=== PATIENT | female | born 1955 | race Caucasian/White ===

== ENCOUNTER → 2017-05-12 | Outpatient (CLI) | payer OTHER ==
[2017-05-12 20:08] LABS: BASO % 0.8 % (0.0-1.0); EOS % 0.6 % (0.0-3.0); LARGE UNSTAINED CELL # 0.2 K/mm3 (0.0-0.4); LARGE UNSTAINED CELL % 3.4 % (0.0-4.0); LYMPH # 1.2 K/mm3 (1.5-4.5); LYMPH % 18.8 % (24.0-44.0); MEAN CORPUSCULAR HEMOGLOBIN 29.1 pg (27.0-33.0); MEAN CORPUSCULAR HGB CONC 34.8 g/dl (32.0-36.5); MEAN CORPUSCULAR VOLUME 83.6 fl (80.0-96.0); MONO # 0.6 K/mm3 (0.0-0.8); MONO % 9.7 % (0.0-5.0); NEUTROPHILS # 4.2 K/mm3 (1.8-7.7); NEUTROPHILS % 66.6 % (36.0-66.0); PLATELET COUNT, AUTOMATED 249 k/mm3 (150-450); RED CELL DISTRIBUTION WIDTH 12.9 % (11.5-14.5); WHITE BLOOD COUNT 6.3 K/mm3 (4.0-10.0)
[2017-05-12 20:26] LABS: ALBUMIN 3.8 GM/DL (3.2-5.2); ALBUMIN/GLOBULIN RATIO 0.97 (1.00-1.93); BILIRUBIN,TOTAL 0.5 MG/DL (0.2-1.0); CALCIUM LEVEL 9.6 MG/DL (8.5-10.1); CREATININE FOR GFR 1.29 MG/DL (0.55-1.02); POTASSIUM SERUM 4.2 MEQ/L (3.5-5.1); TOTAL PROTEIN 7.7 GM/DL (6.4-8.2)
[2017-05-12 20:54] LABS: ERYTHROCYTE SEDIMENTATION RATE 58 mm/hr (0-30)
[2017-05-15 00:06] LABS: Lyme Disease IgG/IgM Antibodie <0.91 ISR (0.00-0.90); Lyme Disease IgM Ab Quantitati <0.80 index (0.00-0.79)
== END ==
LOC: M WUC 16:22
PROVIDERS: ATTEND Physician Assistant
DX: R50.9 Fever, unspecified (principal)

== ENCOUNTER → 2021-08-29 | Outpatient (CLI) | payer OTHER ==
--- NOTE | 2021-08-29 16:54 | DEXAMM ---
INDICATION: OSTEOPOROSIS. COMPARISON: Comparison study October 26, 2014. TECHNIQUE: Bone density was measured using dual-energy x-ray absorptionmetry (DEXA). FINDINGS: AP SPINE L1-L4 BMD 0.84 g/cm2 Young Adult T-Score -2.5 Age Matched Z-Score -1.0. LT FEMUR, TOTAL BMD 0.899 g/cm2 Young Adult T-Score -0.9 Age Matched Z-Score 0.3. LT NECK BMD 0.788 g/cm2 Young Adult T-Score -1.8 Age Matched Z-Score -0.4. RT FEMUR, TOTAL BMD 0.889 g/cm2 Young Adult T-Score -0.9 Age Matched Z-Score 0.2. RT NECK BMD 0.769 g/cm2 Young Adult T-Score -1.9 Age Matched Z-Score -0.5. IMPRESSION: There is osteoporosis of the spine. There is low bone density of the left hip. There is low bone density of the right hip. The density of the spine has decreased 14.0% since the initial exam on August 04, 2009. The density of the spine decreased 9.0% since the most recent exam on October 26, 2014. The density of the left hip has decreased 6.2% since the initial exam on August 04, 2009. The density of the left hip has decreased 5.0% since the most recent exam on October 26, 2014. The density of the right hip has decreased 6.9% since the initial exam on August 04, 2009. The density of the right hip has decreased 4.9% since the most recent exam on October 26, 2014. FOLLOW-UP: Recommendation for the next bone density exam: 2 years. <Electronically signed by Maximilian Barlow > 08/29/21 1759
== END ==
LOC: M WHC 15:12
PROVIDERS: ATTEND Nurse Practitioner Family
DX: M81.0 Age-related osteoporosis without current pathological fracture (principal)

== ENCOUNTER 2024-07-13 07:18 | Day surgery (SDC) | payer MEDICARE, OTHER ==
[~2024-07-13] VITALS: Ht 172.7 cm; Wt 92.5 kg
[~2024-07-13 07:18] MED LIST: ASCO250T20 PO; ATOR40TA75 PO; BISO1TAB18 PO; CETI10CA13 PO; CHEL50TA3 PO; ERGO500029 PO; FENO145T7 PO; HYDR12.55 PO; HYDR25TA87 PO; ICAPTAB7 PO; ICOS1CAP PO; LISI40TA4 PO; MELA5TAB21 PO; NS 1,000 ML IV ONE; POTA10CA70 PO
[2024-07-13] MEDS ORDERED: propofoL 200 MG/20 ML VIAL As Ordered ONE (08:35)
[2024-07-13 09:01] VITALS: TEMP 96.9
[2024-07-13 09:20] VITALS: BP 154/71; O2SAT 97
== END 2024-07-13 09:30 | disposition home or self-care (01) ==
LOC: M SDC 07:18
PROVIDERS: ATTEND Surgery
DX: Z12.11 Encounter for screening for malignant neoplasm of colon (principal); Z12.12 Encounter for screening for malignant neoplasm of rectum; K63.5 Polyp of colon; K64.9 Unspecified hemorrhoids; I10 Essential (primary) hypertension; E78.00 Pure hypercholesterolemia, unspecified; E04.1 Nontoxic single thyroid nodule; Z79.899 Other long term (current) drug therapy; Z90.710 Acquired absence of both cervix and uterus